=== PATIENT | male | born 1970 | race African-American/Black ===

== ENCOUNTER 2024-11-12 15:25 | Emergency (ER) | payer SELFPAY ==
[~2024-11-12] VITALS: Ht 188 cm; Wt 75.0 kg
[2024-11-12 15:30] VITALS: TEMP 98.2; O2SAT 99
[2024-11-12] MEDS ORDERED: TETANUS, DIPHTHERIA, PERTUSSIS VAC/PF 0.5ML (>10YR OLD) IM ONE (15:45)
[2024-11-12] MEDS ORDERED: LIDOCAINE HCL 1% 20ML VIAL INFIL ONE (15:45)
[2024-11-12] MEDS ORDERED: LIDOCAINE HCL 1% 20ML VIAL INFIL NR (17:30)
[2024-11-12] MEDS: IBUPROFEN 800MG TABLET PO ONE (17:31)
[2024-11-12] MEDS: TETANUS, DIPHTHERIA, PERTUSSIS VAC/PF 0.5ML (>10YR OLD) IM ONE (17:31)
[2024-11-12] MEDS ORDERED: CEFTRIAXONE 1GM/50ML 50 ML IV SCH (18:00)
[2024-11-12] MEDS ORDERED: AMOX1TAB16 MT (19:10)
[2024-11-12] MEDS ORDERED: IBUP-2030 MT (19:10)
[2024-11-12 20:14] VITALS: BP 123/79; PULSE 74; RESP 18; O2SAT 100
[2024-11-12] MEDS ORDERED: FLUT9.9S BOTHNSTRLS (21:47)
[2024-11-14] MEDS ORDERED: IBUP-2030 MT (15:19)
[2024-11-14] MEDS ORDERED: CLIN-194 MT (15:19)
[2024-11-14] MEDS ORDERED: CIPR500T5 MT (15:19)
== END 2024-11-13 01:13 | disposition home or self-care (01) ==
LOC: ER 15:25
DX: S01.411A Laceration without foreign body of right cheek and temporomandibular area, initial encounter (principal); S02.85XA Fracture of orbit, unspecified, initial encounter for closed fracture; S06.0X0A Concussion without loss of consciousness, initial encounter; H54.62 Unqualified visual loss, left eye, normal vision right eye; F10.90 Alcohol use, unspecified, uncomplicated; F14.90 Cocaine use, unspecified, uncomplicated; W10.9XXA Fall (on) (from) unspecified stairs and steps, initial encounter; Y93.89 Activity, other specified; Y92.009 Unspecified place in unspecified non-institutional (private) residence as the place of occurrence of the external cause; Y99.8 Other external cause status; Y90.9 Presence of alcohol in blood, level not specified
CPT/HCPCS: 70450; 70486; 12011; 99284; J3490; Z7610 ×3; 90715